=== PATIENT | male | born 1990 | race Caucasian/White ===

== ENCOUNTER 2020-03-01 06:33 | Emergency (ER) | payer MEDICAID ==
[~2020-03-01] VITALS: Ht 185.4 cm; Wt 61.7 kg
[2020-03-01 06:35] VITALS: BP 118/84
--- NOTE | 2020-03-01 06:56 | NUR ---
PATIENT IS GIVEN PRESCIPTIONS AND INSTRUCTED NOT TO DRIVE UNDER THE INFLUENCE OF PRESCRIBED MEDICATIONS.
--- NOTE | 2020-03-01 06:56 | NUR ---
Patient discharged to home in stable condition. Written and verbal after care instructions given. Patient verbalizes understanding of instruction.
== END 2020-03-01 06:59 | disposition home or self-care (01) ==
LOC: ER 06:33
DX: M54.5 Low back pain (principal)